=== PATIENT | female | born 1970 | race Hispanic/Latino ===

== ENCOUNTER 2019-04-14 14:25 | Emergency (ER) | payer OTHER ==
--- NOTE | 2019-04-14 14:58 | Emergency Department Report ---
ED General Adult HPI - General Chief complaint: Allergic Reaction Stated complaint: ALLERGIC REACTION/SOB Time Seen by Provider: 04/14/19 14:54 Source: patient, RN notes reviewed Mode of arrival: Ambulatory Limitations: No Limitations - History of Present Illness Initial comments: During the entire history and physical examination, I am mineral ore processing labourer and escorted by nurse DILIA BRADLEY The patient is a 48-year-old female. This patient is not known to this provider previously. She states that she is not . She states she does not have a local primary care doctor. She reports that she follows up with an rehabilitation specialist, Dr. Brown She reports a history of asthma and "anaphylaxis". She presents to the ER with resolved "anaphylaxis." She reports being in her usual state of health when at 1:30 PM, eating food which that may have had spicy mustard, and pickles that may have contained an allergen, and she reports that she began to feel short of breath, hives and wheezing. She gave herself albuterol, epinephrine, and Benadryl. These resolved her symptoms. She has no complaints at this time. She is not entirely sure what was in the food products, but she believes that she was intolerant or allergic to them. -: Sudden Consistency: now resolved Improves with: medication Worsens with: none - Related Data Previous Rx's Medication Instructions Recorded Last Taken Type EPINEPHrine [Epipen 2-[place]] 0.3 mg IM DAILY PRN #2 ml 04/14/19 Unknown Rx Famotidine [Pepcid] 20 mg PO BID #10 tablet 04/14/19 Unknown Rx diphenhydrAMINE [Benadryl] 50 mg PO Q8HR PRN #20 capsule 04/14/19 Unknown Rx predniSONE [Deltasone] 40 mg PO QDAY #8 tab 04/14/19 Unknown Rx Allergies Allergy/AdvReac Type Severity Reaction Status Date / Time Penicillins Allergy Hives Verified 04/14/19 15:40 ED Review of Systems ROS: Stated complaint: ALLERGIC REACTION/SOB Other details as noted in HPI Constitutional: denies: fever ENT: congestion Respiratory: wheezing Gastrointestinal: denies: vomiting Skin: rash, lesions ED Past Medical Hx - Past Medical History Previous Medical History?: Yes Hx Asthma: Yes - Surgical History Past Surgical History?: No - Medications Home Medications: Home Medications Medication Instructions Recorded Confirmed Last Taken Type EPINEPHrine [Epipen 2-[place]] 0.3 mg IM DAILY PRN #2 ml 04/14/19 Unknown Rx Famotidine [Pepcid] 20 mg PO BID #10 tablet 04/14/19 Unknown Rx diphenhydrAMINE [Benadryl] 50 mg PO Q8HR PRN #20 capsule 04/14/19 Unknown Rx predniSONE [Deltasone] 40 mg PO QDAY #8 tab 04/14/19 Unknown Rx ED Physical Exam - General Limitations: No Limitations General appearance: alert, in no apparent distress - Head Head exam: Present: atraumatic, normocephalic - Eye Eye exam: Present: normal appearance, EOMI. Absent: nystagmus - ENT ENT exam: Present: normal exam, normal orophraynx, mucous membranes moist, normal external ear exam - Neck Neck exam: Present: normal inspection, full ROM. Absent: tenderness, meningismus - Respiratory Respiratory exam: Present: normal lung sounds bilaterally. Absent: respiratory distress, wheezes, rales, rhonchi, stridor - Cardiovascular Cardiovascular Exam: Present: regular rate, normal rhythm, normal heart sounds. Absent: bradycardia, tachycardia, irregular rhythm, systolic murmur, diastolic murmur, rubs, gallop - GI/Abdominal GI/Abdominal exam: Present: soft. Absent: distended, tenderness, guarding, rebound, rigid, pulsatile mass - Extremities Exam Extremities exam: Present: normal inspection, full ROM, other (2+ pulses noted in the bilateral upper extremities. There is no long bony tenderness. The muscular compartments are soft. The pelvis is stable.). Absent: pedal edema, calf tenderness - Back Exam Back exam: Present: normal inspection, full ROM. Absent: tenderness, CVA tenderness (R), CVA tenderness (L), paraspinal tenderness, vertebral tenderness - Neurological Exam Neurological exam: Present: alert, other (there is no facial droop. The tongue is midline. The extraocular movements are intact bilaterally. ) - Skin Skin exam: Present: warm, dry, intact, normal color. Absent: rash ED Course Vital Signs 04/14/19 04/14/19 14:43 16:49 Temperature 98.3 F Pulse Rate 88 82 Respiratory 16 16 Rate Blood Pressure 123/81 [Left] O2 Sat by Pulse 97 100 Oximetry - Reevaluation(s) Reevaluation #1: 04/14/19 14:58 az cytopathology technologist aware Filled ID Written Drug QTY Days Prescriber Rx # Pharmacy * Refills Daily Dose Pymt Type OFFICE MESSENGER HELPER 02/08/2019 2 02/08/2019 PHENTERMINE 37.5 MG TABLET 30.0 30 OS GAI [id number] GAINE ([id number]) [address] 08/03/2018 1 08/03/2018 TRAMADOL HCL 50 MG TABLET 15.0 3 AH NNO [id number] [facility] ([id number]) [address] 06/12/2018 2 06/12/2018 HYDROCODONE-ACETAMIN 7.5-325 20.0 3 CA STA [id number] KROGE ([id number]) [address] 05/30/2018 1 05/13/2018 QSYMIA 15 MG-92 MG CAPSULE 30.0 30 GE ANNALEE [id number] [facility] ([id number]) [address] ED Medical Decision Making - Lab Data Vital Signs 04/14/19 04/14/19 14:43 16:49 Temperature 98.3 F Pulse Rate 88 82 Respiratory 16 16 Rate Blood Pressure 123/81 [Left] O2 Sat by Pulse 97 100 Oximetry - Medical Decision Making Differential diagnosis, including limited to: Anaphylactic reaction, anaphylactoid reaction, general medical evaluation Assessment and plan: A 8-year-old female, with no symptoms at this time, benign and unremarkable clinical exam at this time, likely spirits and resolved allergic reaction. The patient is observed on a pulse ox 4 hours without clinical decompensation. On multiple repeat evaluations, she is noted to be engaged on her cellular phone, and not in any acute distress. Patient is suitable to be discharged at this time. Critical care attestation.: If time is entered above; I have spent that time in minutes in the direct care of this critically ill patient, excluding procedure time. ED Disposition Clinical Impression: History of food intolerance Disposition: [id number] TO HOME OR SELFCARE Is pt being admited?: No Does the pt Need Aspirin: No Condition: Stable Additional Instructions: Please avoid consumption of food and products of the patient is allergic and/or intolerant to. Take the medications as needed and/or directed. Use epinephrine pen only if patient develops inability to speak and inability to breathe. Follow up with her primary care doctor or rehabilitation specialist within the next 7- 10 days. Please note that patient may have a rebound allergic reaction within the next 72 hours, which may manifest with hives, rash, swelling, and itching. Take the medications as directed. Please return to the emergency room right away with new, worse or different symptoms, or symptoms not present on the initial emergency room evaluation. Referrals: [facility] [Provider Group] - 3-[address] [facility] [Provider Group] - 3-5 Days
[2019-04-14] MEDS ORDERED: predniSONE 20 MG TAB PO ONE (17:34)
[2019-04-14 17:52] VITALS: BP 118/78
== END 2019-04-14 17:45 | disposition home or self-care (01) ==
LOC: ED 14:25
DX: T78.1XXA Other adverse food reactions, not elsewhere classified, initial encounter (principal); J45.909 Unspecified asthma, uncomplicated; Z79.899 Other long term (current) drug therapy; Z88.0 Allergy status to penicillin; X58.XXXA Exposure to other specified factors, initial encounter; Y93.89 Activity, other specified; Y92.89 Other specified places as the place of occurrence of the external cause; Y99.8 Other external cause status
CPT/HCPCS: 99282